=== PATIENT | female | born 1985 | race Caucasian/White ===

== ENCOUNTER 2018-11-20 08:35 | Emergency (ER) | payer OTHER ==
[2018-11-20 08:47] VITALS: BMI 53.1
--- NOTE | 2018-11-20 09:15 | PDOC ---
History of Present Illness - General Chief Complaint: Blood Pressure Problem Stated Complaint: HYPERTENSION Time Seen by Provider: 11/20/18 08:54 History Source: Patient - History of Present Illness Timing/Duration: other (this am) Past History - Past Medical History Allergies/Adverse Reactions: Allergies Allergy/AdvReac Type Severity Reaction Status Date / Time No Known Allergies Allergy Verified 11/20/18 08:47 Home Medications: Ambulatory Orders NK [No Known Home Medication] 11/20/18 COPD: No HTN: Yes (preclampsia) - Psycho Social/Smoking Cessation Hx Smoking History: Former smoker Have you smoked in the past 12 months: Yes If you are a former smoker, when did you quit?: 5 years Information on smoking cessation initiated: No Hx Alcohol Use: No Drug/Substance Use Hx: No Review of Systems - Review of Systems Constitutional: No: Chills, Fever HEENTM: Yes: Nose Bleeding ABD/GI: No: Nausea, Vomiting Neurological: No: Headache, Dizziness *Physical Exam - Vital Signs Last Vital Signs Temp Pulse Resp BP Pulse Ox 98.0 F 99 H 16 185/116 H 100 11/20/18 08:43 11/20/18 08:43 11/20/18 08:43 11/20/18 08:43 11/20/18 08:43 - Physical Exam General Appearance: Yes: Appropriately Dressed. No: Apparent Distress HEENT: positive: Normal ENT Inspection, Normal Voice, TMs Normal, Pharynx Normal , Other (No active epistaxis and no blood visualized in nares b/l). negative: Scleral Icterus (R), Scleral Icterus (L) Respiratory/Chest: negative: Respiratory Distress Integumentary: positive: Dry, Warm Neurologic: positive: Fully Oriented, Normal Mood/Affect ED Treatment Course - LABORATORY CBC & Chemistry Diagram: 11/20/18 09:15 11/20/18 09:15 Medical Decision Making - Medical Decision Making 11/20/18 09:07 33 yo morbidly obesed female, smoker, here w/ epistaxis. Pt states that on her way to bathroom this am, she started bleeding spontaneously from L nares that resoled w/ pressure. States she has had epistaxis in past but not as severe as this am. No uri sxs, nasal trauma of hot apartment. No NOBLE, dizziness, n/v See exam Spontaneous epistaxis this am Recurrent Since resolved Exam only remarkable for sig elevated BP (reports HTN only during pregnancies per pt-not on BP meds) No focal deficits -will check basic labs -period of obs 11/20/18 10:31 Labs within normal limits. No further epistaxis in ED. Blood pressure since improved without any intervention. Will dc to return to ED if epistaxis recur and if pt not able to stop it with nasal compression as demonstrated in ER. Patient states she has upcoming appointment with new PMD and will discuss her blood pressure Discharge - Discharge Information Problems reviewed: Yes Clinical Impression/Diagnosis: Epistaxis, Elevated blood pressure reading Condition: Improved Disposition: HOME - Follow up/Referral - Patient Discharge Instructions Patient Printed Discharge Instructions: DI for High Blood Pressure, DI for Nosebleed Additional Instructions: Nasal bleed reoccurs hold nasal compression to bridge of nose for 10 minutes without interruption. Do this at least twice and if bleeding continues, return to the ED Refrain from blowing nose. Sleep in a humidified environment Purchase topical antibiotic ointment [id number] (bacitracin) and use Q- tip to gently apply ointment inside your nose in an attempt to prevent bleeding recurrence Return to ED if symptoms worsen Otherwise follow-up with your doctor to discuss your elevated blood pressure today - Post Discharge Activity
--- NOTE | 2018-11-20 09:21 | PDOC ---
*Physical Exam - Vital Signs Last Vital Signs Temp Pulse Resp BP Pulse Ox 98.0 F 99 H 16 185/116 H 100 11/20/18 08:43 11/20/18 08:43 11/20/18 08:43 11/20/18 08:43 11/20/18 08:43 - Physical Exam Comments: 11/20/18 09:21 The patient was examined by [MAURO Archer] under my direct supervision. I personally evaluated the patient. I concur with the above findings and the plan of care.
[2018-11-20 09:23] VITALS: PULSE 95; TEMP 98.6
[2018-11-20 09:37] LABS: BASO % 0.9 % (0-2.0); EOS % 1.1 % (0-4.5); HEMATOCRIT 41.1 % (32.4-45.2); HEMOGLOBIN 13.6 GM/dL (10.7-15.3); LYMPH % 24.8 % (8-40); MCH 28.5 pg (25.7-33.7); MCHC 33.1 g/dl (32.0-36.0); MEAN PLT VOLUME 9.1 fl (7.5-11.1); MONO % 5.5 % (3.8-10.2); NEUT % 67.7 % (42.8-82.8); PLATELET COUNT 256 K/MM3 (134-434); RBC 4.78 M/mm3 (3.60-5.2); RDW 14.6 % (11.6-15.6); WHITE BLOOD COUNT 7.9 K/mm3 (4.0-10.0)
[2018-11-20 09:42] LABS: INR 0.97 (0.83-1.09); PROTHROMBIN TIME (PATIENT) 11.5 SEC (9.7-13.0)
[2018-11-20] MEDS ORDERED: ACETAMINOPHEN 325 MG TABLET (FP) PO ONE (09:46)
[2018-11-20 09:49] VITALS: BP 142/90
[2018-11-20] MEDS ORDERED: ACETAMINOPHEN 325 MG TABLET (FP) ONE (09:50)
[2018-11-20 10:05] LABS: ALBUMIN 3.9 g/dl (3.4-5.0); BILIRUBIN,TOTAL 0.7 mg/dL (0.2-1); BLOOD UREA NITROGEN 9.6 mg/dL (7-18); CALCIUM 8.8 mg/dL (8.5-10.1); CREATININE 0.7 mg/dL (0.55-1.3); POTASSIUM 4.1 mmol/L (3.5-5.1); TOT PROT 8.1 g/dl (6.4-8.2)
--- NOTE | 2018-11-20 12:54 | EKG ---
Test Reason : Blood Pressure : / mmHG Vent. Rate : 094 BPM Atrial Rate : 094 BPM P-R Int : 150 ms QRS Dur : 082 ms QT Int : 360 ms P-R-T Axes : 043 000 018 degrees QTc Int : 450 ms NORMAL SINUS RHYTHM MODERATE VOLTAGE CRITERIA FOR LVH, MAY BE NORMAL VARIANT BORDERLINE ECG NO PREVIOUS ECGS AVAILABLE Confirmed by MIKE GAXIOLA, CHIQUIS ([id number]) on 11/20/2018 12:53:43 PM Referred By: Confirmed By:CHIQUIS MCKEON MD
== END 2018-11-20 10:51 | disposition home or self-care (01) ==
LOC: JER 08:35
DX: Z01.31 Encounter for examination of blood pressure with abnormal findings (principal); Z87.891 Personal history of nicotine dependence; O14.90 Unspecified pre-eclampsia, unspecified trimester
CPT/HCPCS: 36415; 80053; 84703; 85025; 85610; 93005; 93010; 99283-25

== ENCOUNTER 2018-11-21 18:10 | Emergency (ER) | payer OTHER ==
[2018-11-21 18:21] VITALS: PULSE 100; TEMP 97.4; BMI 53.1
[2018-11-21] MEDS ORDERED: IBUPROFEN 600 MG TABLET (FP) PO ONE ×2 (18:39→18:43)
[2018-11-21] MEDS ORDERED: amLODIPine BESYLATE 5 MG TABLET (FP) PO ONE (18:39)
[2018-11-21] MEDS ORDERED: amLODIPine BESYLATE 5 MG TABLET (FP) ONE (18:43)
--- NOTE | 2018-11-21 18:44 | PDOC ---
History of Present Illness - General Chief Complaint: Blood Pressure Problem Stated Complaint: HYPERTENTION Time Seen by Provider: 11/21/18 18:11 - History of Present Illness Initial Comments: 11/21/18 18:39 33 F with no PMH Presents to ED with headache, elevated BP, and nosebleeds. Pt was seen yesterday for similar problem. Pt had blood tests and EKG that were unremarkable. Her nosebleed stopped spontaneously, and her BP improved without intervention. Pt was subsequently discharged home and instructed to f/u with her PMD. She states that she has an appointment on Dec 23. However, today, she had a recurrent nosebleed in the morning that has since resolved. Her headache returned as well and has been persistent. She denies thunderclap. Denies worst headache of life. Denies N/V. Denies F/C. Denies neck stiffness. Pt states that she also feels like her BP is high again. Did not check it at home. Denies CP/SOB. Denies leg swelling. Denies any new symptoms since yesterday. Past History - Past Medical History Allergies/Adverse Reactions: Allergies Allergy/AdvReac Type Severity Reaction Status Date / Time No Known Allergies Allergy Verified 11/21/18 18:13 Home Medications: Ambulatory Orders NK [No Known Home Medication] 11/20/18 COPD: No HTN: Yes (preclampsia) - Psycho Social/Smoking Cessation Hx Smoking History: Former smoker Have you smoked in the past 12 months: No Number of Cigarettes Smoked Daily: 1 If you are a former smoker, when did you quit?: 5 years Information on smoking cessation initiated: Yes Hx Alcohol Use: No Drug/Substance Use Hx: No Review of Systems - Review of Systems Comments:: 11/21/18 18:44 GENERAL/CONSTITUTIONAL: No fever or chills. No weakness. HEAD, EYES, EARS, NOSE AND THROAT: No change in vision. No ear pain or discharge. No sore throat. CARDIOVASCULAR: No chest pain, no shortness of breath, no loss of consciousness RESPIRATORY: No cough, wheezing, or hemoptysis. GASTROINTESTINAL: No nausea, vomiting, diarrhea or constipation. GENITOURINARY: No dysuria, frequency, or change in urination. MUSCULOSKELETAL: No joint or muscle swelling or pain. No neck or back pain. SKIN: No rash NEUROLOGIC: +Headache, No vertigo, no change in strength/sensation. ENDOCRINE: No increased thirst. No abnormal weight change. HEMATOLOGIC/LYMPHATIC: No anemia, easy bleeding, or history of blood clots. ALLERGIC/IMMUNOLOGIC: No hives or skin allergy. *Physical Exam - Vital Signs Last Vital Signs Temp Pulse Resp BP Pulse Ox 97.4 F L 100 H 20 179/120 H 98 11/21/18 18:10 11/21/18 18:10 11/21/18 18:10 11/21/18 18:10 11/21/18 18:10 - Physical Exam Comments: 11/21/18 18:44 GENERAL: Awake, alert, and fully oriented, in no acute distress. HEAD: No signs of trauma EYES: PERRLA, EOMI, sclera anicteric, conjunctiva clear ENT: Auricles normal inspection, hearing grossly normal, nares patent, oropharynx clear without exudates. Moist mucosa NECK: Nontender, no stepoffs, Normal ROM, supple, no lymphadenopathy, JVD, or masses LUNGS: Breath sounds equal, clear to auscultation bilaterally. No wheezes, and no crackles HEART: Regular rate and rhythm, normal S1 and S2, no murmurs, rubs or gallops ABDOMEN: Soft, nontender, normoactive bowel sounds. No guarding, no rebound. No masses EXTREMITIES: Normal range of motion, no edema. No clubbing or cyanosis. No cords, erythema, or tenderness NEUROLOGICAL: Cranial nerves II through XII intact. 5/5 strength and sensation in all extremities, Normal speech, normal gait, normal cerebellar function SKIN: Warm, Dry, normal turgor, no rashes or lesions noted. Medical Decision Making - Medical Decision Making 11/21/18 18:44 33 F returning to ER for recurrent headache and elevated BP. Vitals notable for BP 179/120 in ED. Exam is normal. Suspect headache is BP-related. Pt has no neuro deficits. No red flags for meningitis/SAH. Pt's BP is likely a chronic issue that has been undiagnosed. EKG from yesterday shows T wave inversions in anterior leads but this is likely old. Pt denying any CP/SOB. - Repeat EKG - Troponin - Motrin for headache - Amlodipine 5mg PO Discharge - Discharge Information Problems reviewed: Yes Clinical Impression/Diagnosis: Elevated blood pressure reading, Headache, Epistaxis Disposition: HOME - Follow up/Referral Referrals: Khoa Oliver MD [Staff Physician] - Chon Laguna MD [Staff Physician] - - Patient Discharge Instructions Patient Printed Discharge Instructions: DI for High Blood Pressure Additional Instructions: Your blood pressure today is elevated. Take the amlodipine as prescribed to lower your blood pressure. You must follow up with your primary care doctor within 1 week to have your pressure re-checked , as uncontrolled blood pressure can eventually lead to heart problems, kidney failure, or other serious medical problems. Call the number provided to make an appointment with Dr. Oliver as soon as possible. You should also follow up with a chief controller, as your EKG yesterday had some abnormal findings. Call the number provided to make an appointment with Dr. Laguna within 1 week. If you experience ANY chest pain, shortness of breath, severe headaches with nausea or vomiting, or any other concerning symptoms, return to the ER immediately. - Post Discharge Activity
[2018-11-21 20:18] VITALS: BP 141/92
--- NOTE | 2018-11-21 21:00 | PDOC ---
*Physical Exam - Vital Signs Last Vital Signs Temp Pulse Resp BP Pulse Ox 97.4 F L 100 H 20 141/92 98 11/21/18 18:10 11/21/18 18:10 11/21/18 18:10 11/21/18 20:17 11/21/18 18:10 - Physical Exam Comments: 11/21/18 20:55 33 yo F with h/o obesity, here with c/o headache, and recent epistaxis. pt ws seen in [facility] er day prior, for nose bleed. incidentally found to be hypertensive. basic labs and ekg were obtained, y which were unremarkable. dc home. unable to get in to see primary doctor in timely manner, establishing care with a new doctor. so she came to ed tonight. signed out to me by DR Meza, pending troponin and ekg. given motrin for her headache. ekg unchanged from day prior, trop negative. labs revieweed from day prior. pt will be set up with our internal medicine [facility] will be seen in 24 - 72 hours. repeat bp in ed was 141/92. states headache is bettter. pt denies recent traum, no n/v is worse in am. no focal weakness. no change to vision. on my exam pt wtih bilat nasal turbinate enlargement, ethmoid and maxiallary sinus tenderness. plan dc home with flonase for sinusitis, allergy medication such as zyrtec, and fu with medicine for bp management. ED Treatment Course - ADDITIONAL ORDERS Additional order review: Laboratory Results 11/21/18 19:55 Troponin I < 0.03 - Medications Given in the ED: ED Medications Discontinued Medications Generic Name Dose Route Start Last Admin Trade Name Freq PRN Reason Stop Dose Admin Amlodipine Besylate 5 mg 11/21/18 18:39 11/21/18 18:45 Norvasc - PO 11/21/18 18:40 5 mg ONCE ONE Administration Ibuprofen 600 mg 11/21/18 18:39 11/21/18 18:44 Motrin - PO 11/21/18 18:40 600 mg ONCE ONE Administration Discharge - Discharge Information Problems reviewed: Yes Clinical Impression/Diagnosis: Elevated blood pressure reading, Headache, Epistaxis, Sinusitis Disposition: HOME - Admission No - Follow up/Referral Referrals: Khoa Oliver MD [Staff Physician] - Chon Laguna MD [Staff Physician] - - Patient Discharge Instructions Patient Printed Discharge Instructions: DI for High Blood Pressure, Sinusitis Additional Instructions: Your blood pressure today is elevated. Take the amlodipine as prescribed to lower your blood pressure. You must follow up with your primary care doctor within 1 week to have your pressure re-checked , as uncontrolled blood pressure can eventually lead to heart problems, kidney failure, or other serious medical problems. Call the number provided to make an appointment with Dr. Oliver as soon as possible. You should also follow up with a surgical garment fitter, as your EKG yesterday had some abnormal findings. Call the number provided to make an appointment with Dr. Laguna within 1 week. If you experience ANY chest pain, shortness of breath, severe headaches with nausea or vomiting, or any other concerning symptoms, return to the ER immediately. in addtion, you should use flonase nasal spray which you can purchase over the counter one spray each nostril daily to help with sinus congestion, you can take allergy medication such as Zyrtec 5 mg daily ( avoid any allergy medication with " D " or decongestant component as this can further elevate your bloodpressure) - Post Discharge Activity Work/Back to School Note: Back to Work
--- NOTE | 2018-11-22 12:39 | EKG ---
Test Reason : Blood Pressure : / mmHG Vent. Rate : 091 BPM Atrial Rate : 091 BPM P-R Int : 144 ms QRS Dur : 080 ms QT Int : 378 ms P-R-T Axes : 052 003 018 degrees QTc Int : 464 ms NORMAL SINUS RHYTHM MODERATE VOLTAGE CRITERIA FOR LVH, MAY BE NORMAL VARIANT WHEN COMPARED WITH ECG OF 20-NOV-2018 08:48, NO SIGNIFICANT CHANGE WAS FOUND Confirmed by PEGGY GAXIOLA, ALLISON ([id number]) on 11/22/2018 12:39:35 PM Referred By: DR VARGAS Confirmed By:ALLISON WOODS MD
== END 2018-11-21 21:06 | disposition home or self-care (01) ==
LOC: FER 18:10
DX: Z01.31 Encounter for examination of blood pressure with abnormal findings (principal); R51 Headache
CPT/HCPCS: 36415; 84484; 93005; 99282-25

== ENCOUNTER 2018-11-23 06:05 | Emergency (ER) | payer OTHER ==
[2018-11-23] MEDS ORDERED: NITROGLYCERIN 2% OINTMENT - 1GM PACKET TD ONE ×3 (06:08→06:20)
--- NOTE | 2018-11-23 06:08 | PDOC ---
History of Present Illness - General Stated Complaint: HYPERTENSION Time Seen by Provider: 11/23/18 06:08 - History of Present Illness Initial Comments: 11/23/18 06:30 33 year old with no pmhx who presents with nosebleed, headache nad HTN. The patient was seen here 2 days ago and was prescribed amlodipine to taken until her upcoming PCP appointment in 2 days. The patient reports that on discharge she was told not to take the medicine, it appears that she misunderstood that she was not to take the medicine the night of discharge but should take it the following days. She has not taken the amlodipine at all. Her nose bleeding has stopped and she has some dizziness and light headache. ROS GENERAL/CONSTITUTIONAL: No fever or chills. No weakness. HEAD, EYES, EARS, NOSE AND THROAT: No change in vision. No sore throat. + nosebleed CARDIOVASCULAR: No chest pain or shortness of breath RESPIRATORY: No cough, wheezing, or hemoptysis. GASTROINTESTINAL: No nausea, vomiting, diarrhea or constipation. GENITOURINARY: No dysuria, frequency, or change in urination. MUSCULOSKELETAL: No joint or muscle swelling or pain. No neck or back pain. SKIN: No rash NEUROLOGIC: + headache, No vertigo, loss of consciousness, or change in strength /sensation. PE GENERAL: Awake, alert, and fully oriented, in no acute distress HEAD: No signs of trauma, normocephalic, atraumatic EYES: PERRLA, EOMI, sclera anicteric, conjunctiva clear ENT: oropharynx clear without exudates. Moist mucosa NECK: Normal ROM, supple LUNGS: No distress, speaks full sentences, clear to auscultation bilaterally HEART: Regular rate and rhythm, normal S1 and S2, no murmurs, rubs or gallops, peripheral pulses normal and equal bilaterally. ABDOMEN: Soft, nontender, normoactive bowel sounds. No guarding, no rebound. No masses EXTREMITIES : Normal inspection, Normal range of motion, no edema. No clubbing or cyanosis. NEUROLOGICAL: Cranial nerves II through XII grossly intact. Normal speech, normal gait, no focal sensorimotor deficits SKIN: Warm, Dry, normal turgor, no rashes or lesions noted MDM DDX including but not limited to: uncontrolled HTN ED Course: urine preg and patient education Adina Galan, PGY2 Emergency Medicine Past History - Past Medical History Allergies/Adverse Reactions: Allergies Allergy/AdvReac Type Severity Reaction Status Date / Time No Known Allergies Allergy Verified 11/21/18 18:13 Home Medications: Ambulatory Orders Amlodipine Besylate 5 mg PO DAILY #14 tablet 11/21/18 COPD: No HTN: Yes (preclampsia) - Psycho Social/Smoking Cessation Hx Smoking History: Former smoker Have you smoked in the past 12 months: No Number of Cigarettes Smoked Daily: 1 If you are a former smoker, when did you quit?: 5 years Hx Alcohol Use: No Drug/Substance Use Hx: No Discharge - Discharge Information Problems reviewed: Yes Clinical Impression/Diagnosis: Headache, Epistaxis, Elevated blood pressure reading Condition: Stable Disposition: HOME - Admission No - Follow up/Referral Referrals: Khoa Oliver MD [Primary Care Provider] - - Patient Discharge Instructions Patient Printed Discharge Instructions: DI for High Blood Pressure Additional Instructions: You should take your amlodipine as prescribed until you see your Family Doctor. Return to the ED if you experience worsening headache, repeat nosebleeding, shortness of breath or chest pain. - Post Discharge Activity
[2018-11-23 06:13] VITALS: BMI 53.1
[2018-11-23] MEDS ORDERED: amLODIPine BESYLATE 5 MG TABLET (FP) PO ONE (06:29)
[2018-11-23] MEDS ORDERED: amLODIPine BESYLATE 5 MG TABLET (FP) ONE (06:33)
--- NOTE | 2018-11-23 07:09 | PDOC ---
Attending Attestation - Resident Resident Name: Adina Galan - ED Attending Attestation I have performed the following: I have examined & evaluated the patient, The case was reviewed & discussed with the resident, I agree w/resident's findings & plan - HPI HPI: 11/24/18 05:42 33 year old with no pmhx who presents with nosebleed, headache nad HTN. The patient was seen here 2 days ago and was prescribed amlodipine to taken until her upcoming PCP appointment in 2 days. Miscommunication and so she has not taken the amlodipine at all. Her nose bleeding has stopped. But now she is anxious and she has a NOBLE. - Physicial Exam PE: 11/24/18 05:43 Normal exam, except that pt is morbidly obese. Agree with resident exam - Medical Decision Making 11/24/18 05:43 BP controlled with amlodipine; Percocet was given for the NOBLE. Pt was reassured. No need for repeat labs today. Pt will be asked to take her script and follow with PMD
[2018-11-23 07:20] VITALS: BP 134/83; PULSE 82; TEMP 98
--- NOTE | 2018-11-23 20:16 | EKG ---
Test Reason : Blood Pressure : / mmHG Vent. Rate : 097 BPM Atrial Rate : 097 BPM P-R Int : 148 ms QRS Dur : 074 ms QT Int : 364 ms P-R-T Axes : 044 -07 001 degrees QTc Int : 462 ms NORMAL SINUS RHYTHM VOLTAGE CRITERIA FOR LEFT VENTRICULAR HYPERTROPHY NONSPECIFIC T WAVE ABNORMALITY PROLONGED QT ABNORMAL ECG WHEN COMPARED WITH ECG OF 21-NOV-2018 19:33, NONSPECIFIC T WAVE ABNORMALITY, WORSE IN ANTERIOR LEADS Confirmed by MD ABDIRASHID, RONA ([id number]) on 11/23/2018 8:16:11 PM Referred By: Confirmed By:RONA MENDENHALL MD
== END 2018-11-23 07:15 | disposition home or self-care (01) ==
LOC: JER 06:05
DX: R51 Headache (principal); Z01.31 Encounter for examination of blood pressure with abnormal findings; R04.0 Epistaxis; Z87.891 Personal history of nicotine dependence
CPT/HCPCS: 84703; 93005; 93010; 99282-25

== ENCOUNTER 2019-03-26 21:45 | Emergency (ER) | payer OTHER ==
--- NOTE | 2019-03-26 21:53 | PDOC ---
Rapid Medical Evaluation Time Seen by Provider: 03/26/19 21:51 Medical Evaluation: Allergies Allergy/AdvReac Type Severity Reaction Status Date / Time No Known Allergies Allergy Verified 11/21/18 18:13 03/26/19 21:51 I have performed a brief in-person evaluation of this patient. The patient presents with a chief complaint of: cough, sore throat x 3 days, denies fevers Pertinent physical exam findings: persistent cough, erythema to posterior oropharynx I have ordered the following: nothing The patient will proceed to the ED for further evaluation. Discharge Disposition - Diagnosis Cough - Referrals - Patient Instructions - Post Discharge Activity
[2019-03-26 21:55] VITALS: TEMP 98.5; BMI 40.7
[2019-03-26] MEDS ORDERED: ALBUTEROL SO4 2.5/IPRATROPIUM 0.5 INH SOL 3 ML VIAL.NEB. NEB ONE (23:44)
[2019-03-26] MEDS ORDERED: IBUPROFEN 600 MG TABLET (FP) PO ONE (23:44)
--- NOTE | 2019-03-26 23:44 | PDOC ---
History of Present Illness - General Chief Complaint: Blood Pressure Problem Stated Complaint: COLD SYMPTOMS Time Seen by Provider: 03/26/19 21:51 History Source: Patient Exam Limitations: No Limitations Past History - Travel Traveled outside of the country in the last 30 days: No Close contact w/someone who was outside of country & ill: No - Past Medical History Allergies/Adverse Reactions: Allergies Allergy/AdvReac Type Severity Reaction Status Date / Time No Known Allergies Allergy Verified 11/21/18 18:13 Home Medications: Ambulatory Orders Amlodipine Besylate 5 mg PO DAILY #14 tablet 11/21/18 Albuterol Sulfate Inhaler - [Ventolin HFA Inhaler -] 1 - 2 inh PO Q4H #1 inhaler 03/27/19 Amoxicillin - [Amoxicillin 500mg Capsule -] 500 mg PO BID #14 capsule 03/27/19 Oseltamivir Phosphate [Tamiflu] 75 mg PO BID #10 capsule 03/27/19 COPD: No HTN: Yes (preclampsia) Hypercholesterolemia: Yes - Immunization History Td Vaccination: Yes TDAP Vaccination: Yes Immunization Up to Date: Yes - Psycho Social/Smoking Cessation Hx Smoking History: Never smoked Have you smoked in the past 12 months: No Number of Cigarettes Smoked Daily: 1 If you are a former smoker, when did you quit?: 5 years Hx Alcohol Use: No Drug/Substance Use Hx: No Review of Systems - Review of Systems Able to Perform ROS?: Yes Comments:: 03/27/19 01:11 CONSTITUTIONAL: Present: Fever, chills, body aches Absent: diaphoresis, generalized weakness, malaise, loss of appetite HEENT: Present: rhinorrhea, nasal congestion, throat pain. Absent: difficulty swallowing, mouth swelling, ear pain, eye pain, visual Changes CARDIOVASCULAR: Absent: chest pain, loss of consciousness, palpitations, irregular heart rate, peripheral edema RESPIRATORY: Present: Cough Absent: shortness of breath, dyspnea with exertion, orthopnea, wheezing, stridor, hemoptysis GASTROINTESTINAL: Absent: abdominal pain, abdominal distension, nausea, vomiting, diarrhea, constipation, melena, hematochezia SKIN: Absent: rash, itching, pallor NEUROLOGIC: Present: headache Absent: focal weakness or paresthesias, dizziness, unsteady gait, seizure, mental status changes, bladder or bowel incontinence Is the patient limited Iranian proficient: No *Physical Exam - Vital Signs Last Vital Signs Temp Pulse Resp BP Pulse Ox 98.5 F 109 H 20 172/117 H 100 03/26/19 21:51 03/26/19 21:51 03/26/19 21:51 03/26/19 21:51 03/26/19 21:51 - Physical Exam 03/27/19 01:11 GENERAL: Well developed, well nourished. Awake and alert. No acute distress. HEENT: Normocephalic, atraumatic. PERRLA, EOMI. No conjunctival pallor. Sclera are non- icteric. Moist mucous membranes. Oropharynx is clear. R TM appears to be ruptured at this time. Unable to visualize L TM NECK: Supple. Full ROM. No JVD. Carotid pulses 2+ and symmetric, without bruits. No thyromegaly. No lymphadenopathy. CARDIOVASCULAR: Regular rate and rhythm. No murmurs, rubs, or gallops. Distal pulses are 2+ and symmetric. PULMONARY: No evidence of respiratory distress. Lungs with scattered expiratory wheezing. No rales or rhonchi. ABDOMINAL: Soft. Non-tender. Non-distended. No rebound or guarding. No organomegaly. Normoactive bowel sounds. MUSCULOSKELETAL Normal range of motion at all joints. No bony deformities or tenderness. No CVA tenderness. EXTREMITIES: No cyanosis. No clubbing. No edema. No calf tenderness. SKIN: Warm and dry. Normal capillary refill. No rashes. No jaundice. NEUROLOGICAL: Alert, awake, appropriate. Cranial nerves 2-12 intact. No deficits to light touch and temperature in face, upper extremities and lower extremities. No motor deficits in the in face, upper extremities and lower extremities. Normoreflexic in the upper and lower extremities. Normal speech. Toes are down- going bilaterally. Gait is normal without ataxia. PSYCHIATRIC: Cooperative. Good eye contact. Appropriate mood and affect. Medical Decision Making - Medical Decision Making 03/27/19 01:13 The patient is a 33-year-old female with past medical history of hypertension, presents to the ER today for flulike symptoms and ear pain. She states her symptoms started 2 days ago when she was in [place]. She states that she just landed back in [place] 2 hours prior to arrival and came to the ER for evaluation. She notes that as the plane was landing her ears popped and she has a lot of pain bilaterally. She also states that she forgot her high blood pressure medication on her vacation so she has not taken her pills for approximately 3 days. Denies chest pain, shortness of breath, nausea, vomiting and diarrhea. A/P: Flulike symptoms. On exam lungs with scattered expiratory wheezes. The right TM appears ruptured. Secondary to influenza-like symptoms or pressure change. We will treat the ear with amoxicillin. Defer strep test as we are treating patient for ruptured eardrum. Patient test positive for flu B. Patient is within treatment window. Will start patient on Tamiflu. Lung sounds now clear after DuoNeb. Patient's home medications for blood pressure were given in the emergency department. Repeat blood pressure now 134/70. Discharge home with primary care follow-up. I discussed the physical exam findings, ancillary test results and final diagnoses with the patient. I answered all of the patient's questions. The patient was satisfied with the care received and felt comfortable with the discharge plan and treatment plan. The Patient agrees to follow up with the primary care physician/specialist within 24-72 hours. Return precautions were given. Discharge - Discharge Information Problems reviewed: Yes Clinical Impression/Diagnosis: Influenza B Condition: Stable Disposition: HOME - Admission No - Additional Discharge Information Prescriptions: Albuterol Sulfate Inhaler - [Ventolin HFA Inhaler -] 1 - 2 inh PO Q4H #1 inhaler Amoxicillin - [Amoxicillin 500mg Capsule -] 500 mg PO BID #14 capsule Oseltamivir Phosphate [Tamiflu] 75 mg PO BID #10 capsule - Follow up/Referral Referrals: Khoa Oliver MD [Primary Care Provider] - - Patient Discharge Instructions Patient Printed Discharge Instructions: DI for Influenza -- Adult Additional Instructions: You have the flu. This is a virus that will get better on its own in approximately 7-10 days. You will most likely have a fever for 7-10 days because of the flu. This is to be expected. You also have an ear infection/ruptured eardrum. Please take the amoxicillin as directed for 1 week. Please follow-up with ENT. Referral was provided. Drink plenty of fluids to prevent dehydration and get plenty of rest. Warm tea and cough drops may help your symptoms as well. Take the tamiflu twice a day for 5 days to help reduce the symptoms of the flu. This medication will not cure the flu. Take Motrin as directed for pain and fever. Take all other medications as prescribed. Follow up with your primary care doctor this week Return to the ED for difficulty breathing, shortness of breath, weakness, or if you have any other changes in your symptoms. - Post Discharge Activity Work/Back to School Note: Back to Work
[2019-03-26] MEDS ORDERED: AMOXICILLIN 500 MG CAPSULE (FP) PO ONE (23:45)
[2019-03-26] MEDS ORDERED: LISINOPRIL 20 MG TABLET (FP) PO ONE (23:53)
[2019-03-26] MEDS ORDERED: amLODIPine BESYLATE 5 MG TABLET (FP) PO ONE (23:54)
--- NOTE | 2019-03-27 00:03 | PDOC ---
*Physical Exam - Vital Signs Last Vital Signs Temp Pulse Resp BP Pulse Ox 98.5 F 109 H 20 172/117 H 100 03/26/19 21:51 03/26/19 21:51 03/26/19 21:51 03/26/19 21:51 03/26/19 21:51 Medical Decision Making - Medical Decision Making 03/27/19 00:02 Patient seen by the advanced practice provider under my supervision. Ancillary testing reviewed as necessary. I agree with plan as outlined by the advanced practice provider. Discharge - Discharge Information Problems reviewed: Yes Clinical Impression/Diagnosis: Influenza B Condition: Stable Disposition: HOME - Additional Discharge Information Prescriptions: Albuterol Sulfate Inhaler - [Ventolin HFA Inhaler -] 1 - 2 inh PO Q4H #1 inhaler Amoxicillin - [Amoxicillin 500mg Capsule -] 500 mg PO BID #14 capsule Oseltamivir Phosphate [Tamiflu] 75 mg PO BID #10 capsule - Follow up/Referral Referrals: Khoa Oliver MD [Primary Care Provider] - - Patient Discharge Instructions Patient Printed Discharge Instructions: DI for Influenza -- Adult Additional Instructions: You have the flu. This is a virus that will get better on its own in approximately 7-10 days. You will most likely have a fever for 7-10 days because of the flu. This is to be expected. You also have an ear infection/ruptured eardrum. Please take the amoxicillin as directed for 1 week. Please follow-up with ENT. Referral was provided. Drink plenty of fluids to prevent dehydration and get plenty of rest. Warm tea and cough drops may help your symptoms as well. Take the tamiflu twice a day for 5 days to help reduce the symptoms of the flu. This medication will not cure the flu. Take Motrin as directed for pain and fever. Take all other medications as prescribed. Follow up with your primary care doctor this week Return to the ED for difficulty breathing, shortness of breath, weakness, or if you have any other changes in your symptoms. - Post Discharge Activity Work/Back to School Note: Back to Work
[2019-03-27] MEDS ORDERED: AMOXICILLIN 500 MG CAPSULE (FP) ONE (00:40)
[2019-03-27] MEDS ORDERED: LISINOPRIL 20 MG TABLET (FP) ONE (00:40)
[2019-03-27] MEDS ORDERED: amLODIPine BESYLATE 5 MG TABLET (FP) ONE (00:40)
[2019-03-27] MEDS ORDERED: ALBUTEROL SO4 2.5/IPRATROPIUM 0.5 INH SOL 3 ML VIAL.NEB. NEB ONE (00:40)
[2019-03-27] MEDS ORDERED: IBUPROFEN 600 MG TABLET (FP) PO ONE (00:41)
[2019-03-27 06:10] VITALS: BP 134/81; PULSE 73
== END 2019-03-27 01:38 | disposition home or self-care (01) ==
LOC: JER 21:45
DX: J10.1 Influenza due to other identified influenza virus with other respiratory manifestations (principal); I10 Essential (primary) hypertension; H66.90 Otitis media, unspecified, unspecified ear; H72.90 Unspecified perforation of tympanic membrane, unspecified ear
CPT/HCPCS: 71046-TC-FY; 87804; 99283-25

== ENCOUNTER 2020-10-09 14:09 | Observation (INO) | payer OTHER ==
[2020-10-09] MEDS ORDERED: SODIUM CHLORIDE 0.9% 500 ML INFUS.BAG IV ONE (15:47)
[2020-10-09] MEDS ORDERED: ACETAMINOPHEN 1000 MG/100 ML VIAL (NON FORMULARY) IVPB ONE (16:06)
[2020-10-09] MEDS ORDERED: ACETAMINOPHEN INJECTION 100 ML IVPB ONE (16:12)
[2020-10-09 16:30] LABS: BASO % 0.9 % (0-2.0); EOS % 1.3 % (0-4.5); HEMATOCRIT 38.5 % (32.4-45.2); LYMPH % 25.6 % (8-40); MCH 28.6 pg (25.7-33.7); MCHC 33.9 g/dl (32.0-36.0); MEAN CELL VOLUME 84.4 fl (80-96); MEAN PLT VOLUME 9.2 fl (7.5-11.1); MONO % 6.2 % (3.8-10.2); PLATELET COUNT 301 10^3/uL (134-434); RBC 4.56 M/mm3 (3.60-5.2); RDW 14.6 % (11.6-15.6); WHITE BLOOD COUNT 10.8 K/mm3 (4.0-10.0)
[2020-10-09 16:36] LABS: INR 0.93 (0.83-1.09); PROTHROMBIN TIME (PATIENT) 11.5 SEC (9.7-13.0)
[2020-10-09 16:47] LABS: CHLORIDE 101 mmol/L (98-107); SODIUM 137 mmol/L (136-145)
[2020-10-09 16:49] LABS: CALCIUM 8.9 mg/dL (8.5-10.1)
[2020-10-09 16:50] LABS: ALBUMIN 3.6 g/dl (3.4-5.0); ANION GAP 7 MMOL/L (8-16); BLOOD UREA NITROGEN 12.7 mg/dL (7-18); CO2 29 mmol/L (21-32); GLUCOSE,RANDOM 129 mg/dL (74-106)
[2020-10-09 16:53] LABS: CREATININE 0.8 mg/dL (0.55-1.3); SGOT/AST 54 U/L (15-37); SGPT/ALT 81 U/L (13-61)
[2020-10-09 16:54] LABS: BILIRUBIN,TOTAL 0.6 mg/dL (0.2-1); TOT PROT 8.2 g/dl (6.4-8.2)
[2020-10-09 16:56] LABS: ALK PHOS 77 U/L (45-117)
[2020-10-09 17:44] LABS: EPI CELLS 14 /uL (0-25.1); HYALINE CASTS 1 /uL (0-3.1); PH,URINE 5.5 (5.0-8.0); URINE APPEARANCE CLEAR; URINE BACTERIA 275 /uL (0-1359); URINE BILIRUBIN NEGATIVE (NEGATIVE); URINE COLOR YELLOW; URINE GLUCOSE (UA) NEGATIVE (NEGATIVE); URINE KETONE NEGATIVE (NEGATIVE); URINE LEUK ESTERASE NEGATIVE (NEGATIVE); URINE NITRITE NEGATIVE (NEGATIVE); URINE PROTEIN 2+ (NEGATIVE); URINE RBC 58 /uL (0-23.9); URINE UROBILINOGEN 0.2 mg/dL (0.2-1.0); URINE WBC 11 /uL (0-25.8)
[2020-10-09 17:50] LABS: URINE BARBITURATES NEGATIVE (NEGATIVE)
[2020-10-09 17:51] LABS: OPIATES, URI NEGATIVE (NEGATIVE); PHENCYCLIDINE,URINE NEGATIVE (NEGATIVE)
[2020-10-09 17:52] LABS: COCAINE, UR NEGATIVE (NEGATIVE); METHADONE, UR NEGATIVE (NEGATIVE); URINE AMPHETAMINES NEGATIVE (NEGATIVE); URINE BENZODIAZEPINES NEGATIVE (NEGATIVE)
[2020-10-10 03:54] VITALS: BMI 57.2
[2020-10-10 08:12] LABS: BASO % 0.7 % (0-2.0); EOS % 2.1 % (0-4.5); HEMOGLOBIN 12.1 GM/dL (10.7-15.3); LYMPH % 33.7 % (8-40); MCHC 34.5 g/dl (32.0-36.0); MEAN PLT VOLUME 9.1 fl (7.5-11.1); MONO % 7.3 % (3.8-10.2); NEUT % 56.2 % (42.8-82.8); PLATELET COUNT 253 10^3/uL (134-434); RBC 4.17 M/mm3 (3.60-5.2); RDW 14.6 % (11.6-15.6); WHITE BLOOD COUNT 8.4 K/mm3 (4.0-10.0)
[2020-10-10 08:40] LABS: CALCIUM 8.6 mg/dL (8.5-10.1); CHOLESTEROL 238 mg/dL (50-200); TRIGLYCERIDES 224 mg/dL (0-150)
[2020-10-10 08:41] LABS: ALBUMIN 3.2 g/dl (3.4-5.0); BLOOD UREA NITROGEN 11.6 mg/dL (7-18); LDL CHOLESTEROL (ONLY SJRH) 151 mg/dL (5-100)
[2020-10-10 08:43] LABS: HDL CHOLESTEROL 44 mg/dL (40-60)
[2020-10-10 08:44] LABS: CREATININE 0.7 mg/dL (0.55-1.3); PHOSPHOROUS 3.8 mg/dL (2.5-4.9)
[2020-10-10 08:45] LABS: BILIRUBIN,TOTAL 0.9 mg/dL (0.2-1); TOT PROT 7.4 g/dl (6.4-8.2)
[2020-10-10] MEDS: HYDROCHLOROTHIAZIDE 25 MG TABLET (FP) PO SCH (09:06)
[2020-10-10] MEDS: ENOXAPARIN NA (PORCINE) 40 MG/0.4 ML DISP.SYRIN SQ SCH ×2 (09:06→10:25)
[2020-10-10] MEDS ORDERED: amLODIPine BESYLATE 5 MG TABLET (FP) PO SCH (10:00)
[2020-10-10] MEDS: ENOXAPARIN NA (PORCINE) 60 MG/0.6 ML DISP.SYRIN SQ SCH (17:28)
[2020-10-10] MEDS: LISINOPRIL 10 MG TABLET PO SCH (17:29)
[2020-10-10] MEDS: ATORVASTATIN CA 40 MG TABLET (FP) PO SCH (21:21)
[2020-10-10] MEDS: ENOXAPARIN NA (PORCINE) 100 MG/1 ML DISP.SYRIN SQ SCH (21:21)
[2020-10-11 08:49] LABS: INR 0.99 (0.83-1.09); PROTHROMBIN TIME (PATIENT) 12.2 SEC (9.7-13.0)
[2020-10-11 08:50] LABS: EOS % 3.1 % (0-4.5); HEMATOCRIT 35.6 % (32.4-45.2); LYMPH % 32.6 % (8-40); MCH 28.7 pg (25.7-33.7); MCHC 33.6 g/dl (32.0-36.0); MEAN CELL VOLUME 85.4 fl (80-96); MEAN PLT VOLUME 9.1 fl (7.5-11.1); MONO % 7.3 % (3.8-10.2); PLATELET COUNT 256 10^3/uL (134-434); RBC 4.17 M/mm3 (3.60-5.2); RDW 14.9 % (11.6-15.6); WHITE BLOOD COUNT 7.5 K/mm3 (4.0-10.0)
[2020-10-11] MEDS: HYDROCHLOROTHIAZIDE 25 MG TABLET (FP) PO SCH (09:15)
[2020-10-11] MEDS: LISINOPRIL 10 MG TABLET PO SCH (09:15)
[2020-10-11] MEDS: ENOXAPARIN NA (PORCINE) 100 MG/1 ML DISP.SYRIN SQ SCH ×2 (09:15→21:15)
[2020-10-11 09:26] LABS: ALBUMIN 3.2 g/dl (3.4-5.0); BLOOD UREA NITROGEN 13.4 mg/dL (7-18); CALCIUM 8.5 mg/dL (8.5-10.1); MAGNESIUM 2.1 mg/dL (1.8-2.4)
[2020-10-11 09:27] LABS: CREATININE 0.8 mg/dL (0.55-1.3)
[2020-10-11 09:28] LABS: BILIRUBIN,TOTAL 0.8 mg/dL (0.2-1); TOT PROT 7.5 g/dl (6.4-8.2)
[2020-10-11] MEDS: ENOXAPARIN NA (PORCINE) 60 MG/0.6 ML DISP.SYRIN SQ SCH (16:08)
[2020-10-11] MEDS ORDERED: PT OWN MED DRAWER 7, Y5N ONE (18:18)
[2020-10-11] MEDS: ATORVASTATIN CA 40 MG TABLET (FP) PO SCH (21:15)
[2020-10-12 09:05] LABS: BASO % 0.7 % (0-2.0); EOS % 2.6 % (0-4.5); HEMOGLOBIN 12.8 GM/dL (10.7-15.3); LYMPH % 36.3 % (8-40); MCHC 34.5 g/dl (32.0-36.0); MEAN CELL VOLUME 84.1 fl (80-96); NEUT % 54.4 % (42.8-82.8); PLATELET COUNT 262 10^3/uL (134-434); RDW 14.6 % (11.6-15.6); WHITE BLOOD COUNT 7.8 K/mm3 (4.0-10.0)
[2020-10-12] MEDS: LISINOPRIL 10 MG TABLET PO SCH (09:25)
[2020-10-12] MEDS: HYDROCHLOROTHIAZIDE 25 MG TABLET (FP) PO SCH (09:25)
[2020-10-12] MEDS: ENOXAPARIN NA (PORCINE) 100 MG/1 ML DISP.SYRIN SQ SCH ×2 (09:25→21:21)
[2020-10-12 09:29] LABS: ALBUMIN 3.4 g/dl (3.4-5.0)
[2020-10-12 09:30] LABS: BLOOD UREA NITROGEN 12.7 mg/dL (7-18); MAGNESIUM 1.9 mg/dL (1.8-2.4)
[2020-10-12 09:33] LABS: CREATININE 0.8 mg/dL (0.55-1.3)
[2020-10-12 09:34] LABS: BILIRUBIN,TOTAL 1.2 mg/dL (0.2-1); TOT PROT 7.9 g/dl (6.4-8.2)
[2020-10-12] MEDS ORDERED: ENOXAPARIN NA (PORCINE) 60 MG/0.6 ML DISP.SYRIN SQ ONE (17:00)
[2020-10-12] MEDS: ATORVASTATIN CA 40 MG TABLET (FP) PO SCH (21:21)
[2020-10-13] MEDS: ENOXAPARIN NA (PORCINE) 100 MG/1 ML DISP.SYRIN SQ SCH (09:15)
[2020-10-13] MEDS: HYDROCHLOROTHIAZIDE 25 MG TABLET (FP) PO SCH (09:15)
[2020-10-13] MEDS: LISINOPRIL 10 MG TABLET PO SCH (09:15)
[2020-10-13] MEDS ORDERED: ONDANSETRON 4 MG/2 ML VIAL IVPUSH ONE (09:45)
[2020-10-13] MEDS ORDERED: PANTOPRAZOLE SODIUM 40 MG VIAL IVPUSH ONE (09:45)
[2020-10-13 10:52] LABS: BASO % 0.6 % (0-2.0); EOS % 1.9 % (0-4.5); HEMATOCRIT 38.4 % (32.4-45.2); HEMOGLOBIN 13.2 GM/dL (10.7-15.3); LYMPH % 30.3 % (8-40); MCH 29.1 pg (25.7-33.7); MCHC 34.3 g/dl (32.0-36.0); MEAN CELL VOLUME 84.9 fl (80-96); MEAN PLT VOLUME 9.2 fl (7.5-11.1); NEUT % 63.2 % (42.8-82.8); PLATELET COUNT 268 10^3/uL (134-434); RBC 4.52 M/mm3 (3.60-5.2); RDW 15.3 % (11.6-15.6); WHITE BLOOD COUNT 7.9 K/mm3 (4.0-10.0)
[2020-10-13 11:22] LABS: ALBUMIN 3.7 g/dl (3.4-5.0); BLOOD UREA NITROGEN 11.2 mg/dL (7-18); CALCIUM 9.2 mg/dL (8.5-10.1)
[2020-10-13 11:26] LABS: CREATININE 0.9 mg/dL (0.55-1.3)
[2020-10-13 11:27] LABS: BILIRUBIN,TOTAL 1.1 mg/dL (0.2-1); TOT PROT 8.3 g/dl (6.4-8.2)
[2020-10-13 15:27] VITALS: BP 121/77; PULSE 18; TEMP 97.4
[2020-10-13] MEDS ORDERED: APIXABAN 5 MG TABLET PO SCH (22:00)
[2020-10-23] MEDS ORDERED: APIXABAN 5 MG TABLET PO SCH (22:00)
== END 2020-10-13 19:04 | disposition home or self-care (01) ==
LOC: JER 14:09 → JERBED 18:11 → J4W 10-10 03:28
PROVIDERS: ADMIT Internal Medicine; ATTEND Nurse Practitioner Acute Care
PROC: 3E043GC Introduction of Other Therapeutic Substance into Central Vein, Percutaneous Approach (ICD-10-PCS; principal; 2020-10-09)
PROC: 3E033NZ Introduction of Analgesics, Hypnotics, Sedatives into Peripheral Vein, Percutaneous Approach (ICD-10-PCS; 2020-10-09)
PROC: 3E033GC Introduction of Other Therapeutic Substance into Peripheral Vein, Percutaneous Approach (ICD-10-PCS; 2020-10-09)
PROC: 3E023GC Introduction of Other Therapeutic Substance into Muscle, Percutaneous Approach (ICD-10-PCS; 2020-10-09)
PROC: 3E0337Z Introduction of Electrolytic and Water Balance Substance into Peripheral Vein, Percutaneous Approach (ICD-10-PCS; 2020-10-09)
DX: R07.9 Chest pain, unspecified (principal); R00.0 Tachycardia, unspecified; A04.8 Other specified bacterial intestinal infections; I10 Essential (primary) hypertension; E78.5 Hyperlipidemia, unspecified; E28.2 Polycystic ovarian syndrome; D64.9 Anemia, unspecified; G47.30 Sleep apnea, unspecified; E66.01 Morbid (severe) obesity due to excess calories; Z68.43 Body mass index [BMI] 50.0-59.9, adult; Z29.9 Encounter for prophylactic measures, unspecified; Z20.822 Contact with and (suspected) exposure to COVID-19; R07.89 Other chest pain; Z91.041 Radiographic dye allergy status
CPT/HCPCS: 36415; 36556; 71045-TC-FY; 71275-TC; 80053; 80061; 80307; 81003; 82550; 83036; 83735; 84100; 84443; 84484; 84703; 85025; 85379; 85610; 85730; 87086; 93005; 93010; 93306-TC; 93970-TC; 96372; 96374; 96375; 99285-25; C9803; G0378; J0131; Q9967; U0003; U0005

== ENCOUNTER 2021-04-29 21:32 | Observation (INO) | payer OTHER ==
[2021-04-29] MEDS ORDERED: ACETAMINOPHEN 500 MG TABLET (FP) PO ONE (23:06)
[2021-04-30] MEDS ORDERED: ACETAMINOPHEN 325 MG TABLET (FP) ONE (00:54)
[2021-04-30 01:08] LABS: BASO % 0.8 % (0-2.0); EOS % 1.1 % (0-4.5); HEMATOCRIT 38.8 % (32.4-45.2); HEMOGLOBIN 12.8 GM/dL (10.7-15.3); LYMPH % 17.4 % (8-40); MCH 27.6 pg (25.7-33.7); MCHC 32.9 g/dl (32.0-36.0); MEAN CELL VOLUME 83.9 fl (80-96); MEAN PLT VOLUME 8.8 fl (7.5-11.1); MONO % 4.5 % (3.8-10.2); NEUT % 76.2 % (42.8-82.8); PLATELET COUNT 269 10^3/uL (134-434); RBC 4.63 M/mm3 (3.60-5.2); RDW 15.3 % (11.6-15.6); WHITE BLOOD COUNT 8.1 K/mm3 (4.0-10.0)
[2021-04-30 01:30] LABS: ALBUMIN 3.9 g/dl (3.4-5.0); CALCIUM 9.6 mg/dL (8.5-10.1)
[2021-04-30 01:31] LABS: BLOOD UREA NITROGEN 12.6 mg/dL (7-18)
[2021-04-30 01:33] LABS: CREATININE 0.8 mg/dL (0.55-1.3)
[2021-04-30 01:35] LABS: BILIRUBIN,TOTAL 0.7 mg/dL (0.2-1); TOT PROT 8.3 g/dl (6.4-8.2)
[2021-04-30 06:19] VITALS: BMI 57.6
[2021-04-30] MEDS: HYDROCHLOROTHIAZIDE 25 MG TABLET (FP) PO SCH (09:56)
[2021-04-30] MEDS: amLODIPine BESYLATE 5 MG TABLET (FP) PO SCH (09:56)
[2021-04-30] MEDS ORDERED: APIXABAN 5 MG TABLET PO SCH (10:00)
[2021-04-30] MEDS: APIXABAN 5 MG TABLET PO SCH ×2 (10:01→21:47)
[2021-04-30] MEDS ORDERED: ACETAMINOPHEN 500 MG TABLET (FP) PO ONE (20:20)
[2021-05-01] MEDS: APIXABAN 5 MG TABLET PO SCH (09:29)
[2021-05-01] MEDS: HYDROCHLOROTHIAZIDE 25 MG TABLET (FP) PO SCH (09:30)
[2021-05-01] MEDS: amLODIPine BESYLATE 5 MG TABLET (FP) PO SCH (09:30)
[2021-05-01 14:12] VITALS: BP 117/91; PULSE 83; TEMP 98.2
== END 2021-05-01 15:25 | disposition home or self-care (01) ==
LOC: JER 21:32 → INTOOBSV 04-30 02:56 → JERBED 04-30 02:56 → J2W 04-30 05:48
PROVIDERS: ADMIT Internal Medicine; ATTEND Internal Medicine
DX: R68.84 Jaw pain (principal); R79.89 Other specified abnormal findings of blood chemistry; E66.01 Morbid (severe) obesity due to excess calories; Z68.43 Body mass index [BMI] 50.0-59.9, adult; D64.9 Anemia, unspecified; E28.2 Polycystic ovarian syndrome; E78.5 Hyperlipidemia, unspecified; Z91.041 Radiographic dye allergy status; G47.33 Obstructive sleep apnea (adult) (pediatric); K29.70 Gastritis, unspecified, without bleeding; Z00.00 Encounter for general adult medical examination without abnormal findings; Z87.891 Personal history of nicotine dependence
CPT/HCPCS: 36415; 71046-TC-FY; 80053; 84443; 84484; 85025; 85379; 93005; 93010; 93970-TC; 99285-25; C9803-CS; G0378; U0003; U0005

== ENCOUNTER 2021-05-27 23:26 | Emergency (ER) | payer OTHER ==
[2021-05-27 23:35] VITALS: BP 139/86; PULSE 96; TEMP 97; BMI 56.8
[2021-05-28] MEDS ORDERED: ACETAMINOPHEN 325 MG TABLET (FP) PO ONE (00:33)
[2021-05-28] MEDS ORDERED: ACETAMINOPHEN 325 MG TABLET (FP) ONE (00:39)
== END 2021-05-28 00:56 | disposition home or self-care (01) ==
LOC: JER 23:26
DX: S70.11XA Contusion of right thigh, initial encounter (principal); W22.8XXA Striking against or struck by other objects, initial encounter
CPT/HCPCS: 99283-25

== ENCOUNTER 2022-01-04 16:19 | Emergency (ER) | payer OTHER ==
[2022-01-04 17:22] VITALS: BP 134/78; RESP 20; TEMP 97.5; BMI 59.4
[2022-01-04 19:25] LABS: HCG,QUALITATIVE URINE Negative
[2022-01-04 19:39] LABS: EPI CELLS 5 /uL (0-25.1); HYALINE CASTS 0 /uL (0-3.1); PH,URINE 5.5 (5.0-8.0); URINE APPEARANCE CLEAR; URINE BACTERIA 7821 /uL (0-1359); URINE BILIRUBIN NEGATIVE (NEGATIVE); URINE COLOR YELLOW; URINE GLUCOSE (UA) NEGATIVE (NEGATIVE); URINE KETONE NEGATIVE (NEGATIVE); URINE LEUK ESTERASE NEGATIVE (NEGATIVE); URINE NITRITE NEGATIVE (NEGATIVE); URINE PROTEIN NEGATIVE (NEGATIVE); URINE RBC 19 /uL (0-23.9); URINE UROBILINOGEN 0.2 mg/dL (0.2-1.0); URINE WBC 8 /uL (0-25.8)
[2022-01-04 20:42] VITALS: PULSE 94
[2022-01-04] MEDS ORDERED: CEPHALEXIN MONOHYDRATE 500 MG CAPSULE (UD) PO ONE (20:42)
[2022-01-04] MEDS ORDERED: PHENAZOPYRIDINE HCL 100 MG TABLET (FP) PO ONE (20:42)
[2022-01-04] MEDS ORDERED: CEPHALEXIN MONOHYDRATE 500 MG CAPSULE (UD) ONE (20:43)
[2022-01-04] MEDS ORDERED: PHENAZOPYRIDINE HCL 100 MG TABLET (FP) ONE (20:44)
== END 2022-01-04 20:45 | disposition home or self-care (01) ==
LOC: JERFT 16:19 → JER 16:19 → JERFT 20:45
DX: N30.00 Acute cystitis without hematuria (principal)
CPT/HCPCS: 81003; 84703; 87086; 87186; 99283-25

== ENCOUNTER 2022-01-06 18:40 | Emergency (ER) | payer OTHER ==
[2022-01-06 18:55] VITALS: BP 148/81; PULSE 115; RESP 22; TEMP 98.1; BMI 59.4
[2022-01-06 21:05] LABS: BASO % 0.8 % (0-2.0); EOS % 1.5 % (0-4.5); HEMATOCRIT 40.7 % (32.4-45.2); HEMOGLOBIN 13.3 GM/dL (10.7-15.3); LYMPH % 27.3 % (8-40); MCH 28.2 pg (25.7-33.7); MCHC 32.7 g/dl (32.0-36.0); MEAN CELL VOLUME 86.1 fl (80-96); MEAN PLT VOLUME 9.5 fl (7.5-11.1); MONO % 6.4 % (3.8-10.2); PLATELET COUNT 281 10^3/uL (134-434); RBC 4.73 M/mm3 (3.60-5.2); RDW 14.8 % (11.6-15.6); WHITE BLOOD COUNT 9.7 K/mm3 (4.0-10.0)
[2022-01-06 21:14] LABS: URINE APPEARANCE CLEAR; URINE BILIRUBIN NEGATIVE (NEGATIVE); URINE COLOR YELLOW; URINE GLUCOSE (UA) NEGATIVE (NEGATIVE); URINE KETONE TRACE (NEGATIVE); URINE LEUK ESTERASE NEGATIVE (NEGATIVE); URINE NITRITE NEGATIVE (NEGATIVE); URINE PROTEIN TRACE (NEGATIVE)
[2022-01-06 21:18] LABS: BLOOD UREA NITROGEN 12.7 mg/dL (7-18); CALCIUM 9.4 mg/dL (8.5-10.1)
[2022-01-06 21:19] LABS: ALBUMIN 3.7 g/dl (3.4-5.0); INR 0.97 (0.83-1.09); PROTHROMBIN TIME (PATIENT) 11.1 SEC (9.7-13.0)
[2022-01-06 21:21] LABS: CREATININE 0.8 mg/dL (0.55-1.3)
[2022-01-06 21:22] LABS: ACTIVATED PTT 33.9 SECONDS (25.2-36.5)
[2022-01-06 21:23] LABS: BILIRUBIN,TOTAL 0.4 mg/dL (0.2-1); TOT PROT 7.8 g/dl (6.4-8.2)
[2022-01-06] MEDS ORDERED: KETOROLAC TROMETHAMINE 15 MG/ML VIAL IVPUSH ONE (21:54)
[2022-01-06] MEDS ORDERED: KETOROLAC TROMETHAMINE 15 MG/ML VIAL ONE (22:52)
== END 2022-01-06 23:03 | disposition home or self-care (01) ==
LOC: JER 18:40
PROC: 3E0333Z Introduction of Anti-inflammatory into Peripheral Vein, Percutaneous Approach (ICD-10-PCS; principal; 2022-01-06)
DX: R07.9 Chest pain, unspecified (principal)
CPT/HCPCS: 0241U-QW; 36415; 71045-TC-FY; 80053; 81003; 84484; 84703; 85025; 85379; 85610; 85730; 87086; 93005; 93010; 93308; 99285-25

== ENCOUNTER 2022-02-23 00:48 | Emergency (ER) | payer OTHER ==
[2022-02-23 01:10] VITALS: TEMP 98.3; BMI 58.1
[2022-02-23 02:47] LABS: BASO % 0.7 % (0-2.0); EOS % 2.2 % (0-4.5); HEMATOCRIT 40.7 % (32.4-45.2); HEMOGLOBIN 13.3 GM/dL (10.7-15.3); MCH 27.7 pg (25.7-33.7); MCHC 32.6 g/dl (32.0-36.0); MEAN PLT VOLUME 8.5 fl (7.5-11.1); MONO % 5.6 % (3.8-10.2); NEUT % 66.5 % (42.8-82.8); PLATELET COUNT 303 10^3/uL (134-434); RBC 4.79 M/mm3 (3.60-5.2); WHITE BLOOD COUNT 10.4 K/mm3 (4.0-10.0)
[2022-02-23 03:05] LABS: CALCIUM 9.3 mg/dL (8.5-10.1)
[2022-02-23 03:06] LABS: ALBUMIN 3.8 g/dl (3.4-5.0)
[2022-02-23 03:09] LABS: CREATININE 0.7 mg/dL (0.55-1.3)
[2022-02-23 03:10] LABS: BILIRUBIN,TOTAL 0.6 mg/dL (0.2-1)
[2022-02-23 03:11] LABS: TOT PROT 8.3 g/dl (6.4-8.2)
[2022-02-23 03:42] VITALS: BP 138/78; PULSE 90; RESP 21
== END 2022-02-23 03:52 | disposition home or self-care (01) ==
LOC: JER 00:48
DX: R51.9 Headache, unspecified (principal); I10 Essential (primary) hypertension; Z91.199 Patient's noncompliance with other medical treatment and regimen due to unspecified reason
CPT/HCPCS: 36415; 70450-TC; 80053; 84484; 84703; 85025; 93005; 93010; 99285-25

== ENCOUNTER 2022-11-04 23:45 | Emergency (ER) | payer OTHER ==
[2022-11-04 23:52] VITALS: BP 127/91; PULSE 83; RESP 18; TEMP 97.8; BMI 49.1
[2022-11-05 00:44] LABS: EPI CELLS 30 /uL (0-25.1); HYALINE CASTS 3 /uL (0-3.1); URINE APPEARANCE CLOUDY; URINE BACTERIA 2105 /uL (0-1359); URINE BILIRUBIN NEGATIVE (NEGATIVE); URINE COLOR YELLOW; URINE GLUCOSE (UA) NEGATIVE (NEGATIVE); URINE KETONE TRACE (NEGATIVE); URINE LEUK ESTERASE 2+ (NEGATIVE); URINE NITRITE NEGATIVE (NEGATIVE); URINE PROTEIN 2+ (NEGATIVE); URINE RBC 407 /uL (0-23.9); URINE WBC 825 /uL (0-25.8)
[2022-11-05] MEDS ORDERED: CEPHALEXIN MONOHYDRATE 500 MG CAPSULE (UD) PO ONE (00:49)
[2022-11-05] MEDS ORDERED: CEPHALEXIN MONOHYDRATE 500 MG CAPSULE (UD) ONE (00:52)
[2022-11-05 05:20] LABS: YEAST NONE SEEN (NEGATIVE)
== END 2022-11-05 02:00 | disposition home or self-care (01) ==
LOC: JER 23:45
DX: R35.0 Frequency of micturition (principal); R30.0 Dysuria; N39.0 Urinary tract infection, site not specified
CPT/HCPCS: 81003; 84703; 87086; 87186; 99283-25

== ENCOUNTER 2023-06-08 22:20 | Emergency (ER) | payer OTHER ==
[2023-06-08 22:30] VITALS: BP 140/76; PULSE 94; RESP 18; TEMP 98.5; BMI 42.0
[2023-06-08] MEDS ORDERED: SULFAMETHOXAZOLE/TRIMETHOPRIM 800MG/160MG D.S. TABLET ONE (23:59)
[2023-06-09] MEDS ORDERED: ACETAMINOPHEN 325 MG TABLET (FP) ONE
[2023-06-09 00:01] LABS: EPI CELLS 25 /uL (0-25.1); HYALINE CASTS 0 /uL (0-3.1); PH,URINE 6.5 (5.0-8.0); URINE APPEARANCE CLOUDY; URINE BACTERIA 899 /uL (0-1359); URINE BILIRUBIN NEGATIVE (NEGATIVE); URINE COLOR YELLOW; URINE GLUCOSE (UA) NEGATIVE (NEGATIVE); URINE KETONE TRACE (NEGATIVE); URINE LEUK ESTERASE 1+ (NEGATIVE); URINE NITRITE NEGATIVE (NEGATIVE); URINE PROTEIN 3+ (NEGATIVE); URINE RBC 1380 /uL (0-23.9); URINE UROBILINOGEN 0.2 mg/dL (0.2-1.0); URINE WBC 1446 /uL (0-25.8)
[2023-06-09 00:02] LABS: BASO % 0.9 % (0-2.0); EOS % 1.3 % (0-4.5); HEMATOCRIT 38.3 % (32.4-45.2); HEMOGLOBIN 12.8 GM/dL (10.7-15.3); LYMPH % 26.8 % (8-40); MCH 29.1 pg (25.7-33.7); MCHC 33.4 g/dl (32.0-36.0); MEAN CELL VOLUME 87.1 fl (80-96); MEAN PLT VOLUME 9.5 fl (7.5-11.1); MONO % 5.4 % (3.8-10.2); NEUT % 65.6 % (42.8-82.8); PLATELET COUNT 251 10^3/uL (134-434); RDW 13.7 % (11.6-15.6); WHITE BLOOD COUNT 9.8 K/mm3 (4.0-10.0)
[2023-06-09] MEDS: SULFAMETHOXAZOLE/TRIMETHOPRIM 800MG/160MG D.S. TABLET PO ONE (00:09)
[2023-06-09] MEDS: ACETAMINOPHEN 325 MG TABLET (FP) PO ONE (00:10)
[2023-06-09 00:18] LABS: POTASSIUM 3.8 mmol/L (3.5-5.1)
[2023-06-09 00:20] LABS: CALCIUM 8.9 mg/dL (8.5-10.1)
[2023-06-09 00:21] LABS: ALBUMIN 3.5 g/dl (3.4-5.0); BLOOD UREA NITROGEN 15.5 mg/dL (7-18)
[2023-06-09 00:24] LABS: CREATININE 0.6 mg/dL (0.55-1.3)
[2023-06-09 00:25] LABS: TOT PROT 7.2 g/dl (6.4-8.2)
[2023-06-09 00:26] LABS: BILIRUBIN,TOTAL 0.7 mg/dL (0.2-1)
== END 2023-06-09 02:09 | disposition home or self-care (01) ==
LOC: JER 22:20
DX: R10.30 Lower abdominal pain, unspecified (principal); N39.0 Urinary tract infection, site not specified; R31.9 Hematuria, unspecified; R35.0 Frequency of micturition; R30.0 Dysuria
CPT/HCPCS: 36415; 74176-TC; 80053; 81003; 84703; 85025; 87086; 87186; 99284-25

== ENCOUNTER 2023-12-08 05:31 | Emergency (ER) | payer OTHER ==
[2023-12-08 05:37] VITALS: BMI 39.6
[2023-12-08] MEDS ORDERED: ACETAMINOPHEN 500 MG TABLET (FP) ONE (06:01)
[2023-12-08] MEDS: ACETAMINOPHEN 500 MG TABLET (FP) PO ONE (06:14)
[2023-12-08] MEDS: ALBUTEROL SO4 2.5/IPRATROPIUM 0.5 INH SOL 3 ML VIAL.NEB. NEB ONE (06:15)
[2023-12-08] MEDS ORDERED: ALBUTEROL SO4 2.5/IPRATROPIUM 0.5 INH SOL 3 ML VIAL.NEB. NEB ONE (06:17)
[2023-12-08 07:23] LABS: BASO % 0.8 % (0-2.0); EOS % 1.6 % (0-4.5); HEMATOCRIT 36.8 % (32.4-45.2); HEMOGLOBIN 12.2 GM/dL (10.7-15.3); LYMPH % 33.6 % (8-40); MCH 29.1 pg (25.7-33.7); MCHC 33.1 g/dl (32.0-36.0); MEAN CELL VOLUME 87.9 fl (80-96); MEAN PLT VOLUME 9.2 fl (7.5-11.1); MONO % 10.2 % (3.8-10.2); NEUT % 53.8 % (42.8-82.8); PLATELET COUNT 185 10^3/uL (134-434); RBC 4.19 M/mm3 (3.60-5.2); RDW 13.2 % (11.6-15.6); WHITE BLOOD COUNT 7.3 K/mm3 (4.0-10.0)
[2023-12-08 07:32] LABS: POTASSIUM 3.2 mmol/L (3.5-5.1)
[2023-12-08 07:34] LABS: CALCIUM 8.8 mg/dL (8.5-10.1)
[2023-12-08 07:35] LABS: ALBUMIN 3.4 g/dl (3.4-5.0); BLOOD UREA NITROGEN 8.2 mg/dL (7-18)
[2023-12-08 07:38] LABS: CREATININE 0.6 mg/dL (0.55-1.3)
[2023-12-08 07:40] LABS: BILIRUBIN,TOTAL 0.9 mg/dL (0.2-1); TOT PROT 7.1 g/dl (6.4-8.2)
[2023-12-08 07:43] LABS: N-TERMINAL BNP 60.6 pg/ml (5-125)
[2023-12-08] MEDS ORDERED: POTASSIUM CHLORIDE TABS 20 MEQ TABLET.ER (FP) PO ONE (07:53)
[2023-12-08] MEDS: POTASSIUM CHLORIDE TABS 20 MEQ TABLET.ER (FP) PO ONE (07:58)
[2023-12-08 08:14] VITALS: BP 121/88; PULSE 88; RESP 16; TEMP 97.6
[2023-12-08 12:28] LABS: HIV INTERPRETATION NEGATIVE (NEGATIVE)
== END 2023-12-08 09:00 | disposition home or self-care (01) ==
LOC: JER 05:31
PROC: 3E0F7GC Introduction of Other Therapeutic Substance into Respiratory Tract, Via Natural or Artificial Opening (ICD-10-PCS; principal; 2023-12-08)
DX: R05.9 Cough, unspecified (principal); R50.9 Fever, unspecified; J02.9 Acute pharyngitis, unspecified; R07.89 Other chest pain; R06.02 Shortness of breath; J06.9 Acute upper respiratory infection, unspecified; Z20.822 Contact with and (suspected) exposure to COVID-19
CPT/HCPCS: 0241U-QW; 36415; 71046-TC-FY; 80053; 83880; 84484; 84703; 85025; 86803; 87389; 93005; 93010; 99285-25